=== PATIENT | female | born 1935 | race Caucasian/White ===

== ENCOUNTER 2017-11-13 07:02 | Day surgery (SDC) | payer MEDICARE ==
[~2017-11-13] VITALS: Ht 162.6 cm; Wt 82.0 kg
[~2017-11-13 07:02] MED LIST: ALBU90OI INH; ASPIRIN CAFFEINE PO; ATOR10 PO; AZIT250 PO; AZIT500 PO; Amiodarone HCl200 MG PO; BAYER BACK & B1 EACH PO; BENZ100A PO; CAPS28.3TC TOP; CETI5; CETI5 PO; Crestor20 MG PO; DIAZ10 PO; DICL75ER PO; DICMIS75EC; DICMIS75EC PO; ELIQUIS2.5 MG PO; FURO20 PO; FURO40; FURO40 PO; GABA300 PO; GABA300T24 PO; GLYB1.5 PO; GLYB2.5 PO; GLYB5 PO; Glyburide5 MG PO; HYDR1TAB94 PO; INDO50 PO; Klor-Con 1010 MEQ PO; Lanoxin125 MCG PO; Lisinopril2.5 MG PO; MECL25 PO; METF500; METF500 PO; METO10; METO25ER PO; Metoclopramide10 MG PO; Mucinex600 MG PO; Norco 5-325 Ta1 EACH PO; OMEP20ER PO; ORLI120; OXAYDO7.5 MG PO; OXYACE5T PO; OXYACE7.5T; OXYACE7.5T PO; OXYC10TA19 PO; Ondansetron Odt8 MG PO; POTA10T; POTA10T PO; POTCHL10ER PO; PROACE100; PROM25 PO; Percocet 5-3251 EACH PO; Percocet 7.5-31 EACH PO; Prednisone20 MG PO; Prozac40 MG PO; Qualaquin324 MG PO; RANI150 PO; ROSU10TA; ROSU10TA PO; Ranitidine HCl300 M1 PO; SERT100; TRIHYD253A PO; Valium10 MG PO; Zofran Odt4 MG PO
[2017-11-13] MEDS ORDERED: ROSU10TA PO (08:14)
[2017-11-13] MEDS ORDERED: GLIP2.5ER PO (08:16)
[2017-11-13] MEDS ORDERED: Omeprazole20 M1 PO (08:17)
[2017-11-13] MEDS ORDERED: ALBU90OI61 NEB (08:21)
[2017-11-13] MEDS ORDERED: NEBI5 PO (08:22)
== END 2017-11-13 22:53 | disposition home or self-care (01) ==
LOC: MHTC 07:02
PROC: 065Q3ZZ Destruction of Left Saphenous Vein, Percutaneous Approach (ICD-10-PCS; principal; 2017-11-13)
DX: I87.2 Venous insufficiency (chronic) (peripheral) (principal); I47.1 Supraventricular tachycardia; I48.0 Paroxysmal atrial fibrillation; I50.30 Unspecified diastolic (congestive) heart failure; E11.9 Type 2 diabetes mellitus without complications; G47.33 Obstructive sleep apnea (adult) (pediatric); M19.90 Unspecified osteoarthritis, unspecified site; J44.9 Chronic obstructive pulmonary disease, unspecified; E78.5 Hyperlipidemia, unspecified; G47.30 Sleep apnea, unspecified; Z88.0 Allergy status to penicillin; Z88.5 Allergy status to narcotic agent; Z88.8 Allergy status to other drugs, medicaments and biological substances; Z79.899 Other long term (current) drug therapy; Z79.01 Long term (current) use of anticoagulants; Z96.652 Presence of left artificial knee joint; Z79.84 Long term (current) use of oral hypoglycemic drugs; Z87.891 Personal history of nicotine dependence
CPT/HCPCS: 36475; 82947; 99152; C1769; C1888; C1894; J1644; J2250; J3010; J7030; J7040

== ENCOUNTER 2018-01-08 08:02 | Day surgery (SDC) | payer MEDICARE ==
[~2018-01-08] VITALS: Ht 160 cm; Wt 87.2 kg
[~2018-01-08 08:02] MED LIST changes: +ALBU90OI61 NEB; +GLIP2.5ER PO; +NEBI5 PO; +Omeprazole20 M1 PO
== END 2018-01-08 22:41 | disposition home or self-care (01) ==
LOC: MHTC 08:02
PROC: 065P3ZZ Destruction of Right Saphenous Vein, Percutaneous Approach (ICD-10-PCS; principal; 2018-01-08)
PROC: 3E033TZ Introduction of Destructive Agent into Peripheral Vein, Percutaneous Approach (ICD-10-PCS; principal; 2018-01-08)
DX: E11.51 Type 2 diabetes mellitus with diabetic peripheral angiopathy without gangrene (principal); I87.2 Venous insufficiency (chronic) (peripheral); I83.811 Varicose veins of right lower extremity with pain; I83.891 Varicose veins of right lower extremity with other complications; E78.5 Hyperlipidemia, unspecified; G47.30 Sleep apnea, unspecified; Z87.891 Personal history of nicotine dependence; I48.0 Paroxysmal atrial fibrillation
CPT/HCPCS: 36465; 36470; 36475; 82947; 99152; C1888; C1894; J1644; J2250; J3010; J7030; J7040

== ENCOUNTER 2018-12-10 08:33 | Day surgery (SDC) | payer MEDICARE ==
[~2018-12-10] VITALS: Ht 160 cm; Wt 90.9 kg
[~2018-12-10 08:33] MED LIST changes: +CLARITIN10 MG PO; +ELIQUIS5 MG PO; +FLONASE ALLERG9.9 ML INH; -FURO40; -GLIP2.5ER PO; +GLIP5ER PO; -OXYACE7.5T; -POTA10T
[2018-12-10] MEDS ORDERED: DIPH50 PO (09:22)
[2018-12-18] MEDS ORDERED: CRAMP PO (08:57)
[2018-12-18] MEDS ORDERED: CLARITIN10 MG PO (08:57)
== END 2018-12-10 22:48 | disposition home or self-care (01) ==
LOC: MHTC 08:33
PROC: 3E033TZ Introduction of Destructive Agent into Peripheral Vein, Percutaneous Approach (ICD-10-PCS; principal; 2018-12-10)
PROC: 065P3ZZ Destruction of Right Saphenous Vein, Percutaneous Approach (ICD-10-PCS; principal; 2018-12-10)
PROC: B54BZZA Ultrasonography of Right Lower Extremity Veins, Guidance (ICD-10-PCS; principal; 2018-12-10)
DX: I87.2 Venous insufficiency (chronic) (peripheral) (principal); E11.9 Type 2 diabetes mellitus without complications; I48.0 Paroxysmal atrial fibrillation; E78.5 Hyperlipidemia, unspecified; G47.30 Sleep apnea, unspecified; E78.00 Pure hypercholesterolemia, unspecified; R13.10 Dysphagia, unspecified; K22.4 Dyskinesia of esophagus; K22.5 Diverticulum of esophagus, acquired; R22.40 Localized swelling, mass and lump, unspecified lower limb; M19.90 Unspecified osteoarthritis, unspecified site; Z96.653 Presence of artificial knee joint, bilateral; Z98.1 Arthrodesis status; Z79.899 Other long term (current) drug therapy; Z79.01 Long term (current) use of anticoagulants; Z79.84 Long term (current) use of oral hypoglycemic drugs; Z88.8 Allergy status to other drugs, medicaments and biological substances; Z88.0 Allergy status to penicillin; Z88.5 Allergy status to narcotic agent
CPT/HCPCS: 36470; 36475; C1888; C1894; J1644; J2250; J2310; J3010; J7030; J7040

== ENCOUNTER 2018-12-18 10:16 | Day surgery (SDC) | payer MEDICARE ==
[~2018-12-18] VITALS: Ht 162.6 cm; Wt 90.0 kg
[~2018-12-18 10:16] MED LIST changes: +CRAMP PO; +DIPH50 PO
--- NOTE | 2018-12-18 13:26 | NUR ---
PT IN RECOVERY - AT BEDSIDE. PT RIGHT GROIN SITE WNL. SOFT, NON TENDER. NO BLEEDING OR SWELLING NOTED. PT HAS NO C/O AT THIS TIME. LAYING FLAT PER MD ORDERS. LEGS PWD BILATERALLY.
--- NOTE | 2018-12-18 14:48 | NUR ---
PT RESTING ON STRETCHER AT THIS TIME. ATE LUNCH WITH ASSISTANCE OF . NO C/O PAIN OR DISCOMFORT. NO BLEEDING OR SWELLING NOTED. PT TOLERATING LAYING FLAT WITHOUT DIFFICULTY.
--- NOTE | 2018-12-18 16:47 | NUR ---
PT DISCHARGED HOME VIA W/C AT 1630. HAD AMBULATED AROUND DEPARTMENT, WENT TO BATHROOM, AND DRESSED SELF PRIOR TO D/C. NO BLEEDING OR SWELLING NOTED TO GROIN AREA WITH FREQUENT CHECKS. LEG REMAINED PWD. PT DENIED PAIN OR DISCOMFORT. REVIEWED DISCHARGE INSTRUCTIONS WITH PATIENT AND PRIOR TO LEAVING - BOTH VERBALIZED UNDERSTANDING OF ALL INSTRUCTIONS GIVEN. IV D/C TIP INTACT. DRIVE PATIENT HOME.
== END 2018-12-18 16:30 | disposition home or self-care (01) ==
LOC: MHTC 10:16
PROC: 047S3ZZ Dilation of Left Posterior Tibial Artery, Percutaneous Approach (ICD-10-PCS; principal; 2018-12-18)
PROC: B41F1ZZ Fluoroscopy of Right Lower Extremity Arteries using Low Osmolar Contrast (ICD-10-PCS; principal; 2018-12-18)
DX: I70.202 Unspecified atherosclerosis of native arteries of extremities, left leg (principal); I35.0 Nonrheumatic aortic (valve) stenosis; Z95.828 Presence of other vascular implants and grafts
CPT/HCPCS: 36247; 37228; 75625; 75716; 75774; 99152; 99153; C1725; C1760; C1769; C1887; C1894; J1644; J2250; J3010; J7030; Q9967

== ENCOUNTER → 2021-04-27 | Outpatient (CLI) | payer MEDICARE ==
[~2021-04-27] MED LIST changes: +ASPI325; +OMEP20ER; +PREG50
[2021-04-27 13:29] LABS: Microalbumin, Urine Quant. 19.3 mg/L (0.000-20.000); Protein, Urine Quantitative 12.5 mg/dL (0.0-11.9)
== END | disposition home or self-care (01) ==
LOC: LAB 09:20 → LAB SHORT 09:20
PROVIDERS: Internal Medicine Nephrology
DX: N18.30 Chronic kidney disease, stage 3 unspecified (principal); D63.1 Anemia in chronic kidney disease; N25.81 Secondary hyperparathyroidism of renal origin; E55.9 Vitamin D deficiency, unspecified; E78.00 Pure hypercholesterolemia, unspecified; D50.9 Iron deficiency anemia, unspecified; D51.8 Other vitamin B12 deficiency anemias; D52.8 Other folate deficiency anemias; R76.9 Abnormal immunological finding in serum, unspecified; R94.5 Abnormal results of liver function studies; R94.6 Abnormal results of thyroid function studies
CPT/HCPCS: 81050; 82043; 84156; 84300

== ENCOUNTER 2022-02-08 08:56 | Day surgery (SDC) | payer MEDICARE ==
[~2022-02-08] VITALS: Ht 157.5 cm; Wt 88.5 kg
[~2022-02-08 08:56] MED LIST changes: +PREG50 PO
[2022-02-08] MEDS ORDERED: NEBI10 (10:07)
--- NOTE | 2022-02-08 10:12 | NUR ---
02/08/22 1012 EMILIE ACUÑA TETRACAINE DROP AT 9:54, PLEDGETTE PLACED AT 10:12, PT TOLERATED WELL
== END 2022-02-08 11:59 | disposition home or self-care (01) ==
LOC: ORSCSDS 08:56
PROVIDERS: Ophthalmology
PROC: 08RK3JZ Replacement of Left Lens with Synthetic Substitute, Percutaneous Approach (ICD-10-PCS; principal; 2022-02-08 10:30)
DX: H25.13 Age-related nuclear cataract, bilateral (principal); J44.9 Chronic obstructive pulmonary disease, unspecified; G47.33 Obstructive sleep apnea (adult) (pediatric); K21.9 Gastro-esophageal reflux disease without esophagitis; I48.91 Unspecified atrial fibrillation; Z79.01 Long term (current) use of anticoagulants; I12.9 Hypertensive chronic kidney disease with stage 1 through stage 4 chronic kidney disease, or unspecified chronic kidney disease; E11.22 Type 2 diabetes mellitus with diabetic chronic kidney disease; N18.9 Chronic kidney disease, unspecified; Z79.84 Long term (current) use of oral hypoglycemic drugs; Z79.899 Other long term (current) drug therapy
CPT/HCPCS: 82947; J2001; J2250; J3010; J3301; J7040; V2632

== ENCOUNTER 2022-03-08 08:41 | Day surgery (SDC) | payer MEDICARE ==
[~2022-03-08] VITALS: Ht 160 cm; Wt 85.3 kg
[~2022-03-08 08:41] MED LIST changes: +CYCL10 PO; +GLIP2.5ER PO; +GLYBURIDE5 M1 PO; +NEBI10; -OMEP20ER; +PREG75 PO; +Prednisone10 MG PO
--- NOTE | 2022-03-08 13:20 | NUR ---
03/08/22 1320 Elsie Sesay ADVISED PT TO TAKE OTC MEDICATION FOR PAIN. IF THE PAIN IS NOT RESOLVED WITH OTC MEDICATION THAN SHE NEEDS TO NOTIFY DR DICKSON OFFICE THIS COULD BE A SIGN OF COMPLICATIONS.
== END 2022-03-08 11:40 | disposition home or self-care (01) ==
LOC: ORSCSDS 08:41
PROVIDERS: Ophthalmology
PROC: 08RJ3JZ Replacement of Right Lens with Synthetic Substitute, Percutaneous Approach (ICD-10-PCS; principal; 2022-03-08 10:30)
DX: H25.11 Age-related nuclear cataract, right eye (principal); I48.91 Unspecified atrial fibrillation; I10 Essential (primary) hypertension; K21.9 Gastro-esophageal reflux disease without esophagitis; E11.9 Type 2 diabetes mellitus without complications; E66.01 Morbid (severe) obesity due to excess calories; Z68.33 Body mass index [BMI] 33.0-33.9, adult; Z79.01 Long term (current) use of anticoagulants; Z79.899 Other long term (current) drug therapy
CPT/HCPCS: 82947; A9270; J2001; J2250; J3010; J3301; J7040; V2632

== ENCOUNTER → 2022-12-18 | Outpatient (CLI) | payer MEDICARE ==
[2022-12-18 16:25] LABS: U Benzodiazapine Screen DETECTED
[2022-12-18 16:26] LABS: U Amphetamine Screen Not Detected; U Barbituate Screen Not Detected; U Buprenorphine Screen Not Detected; U Cannabinoids Screen Not Detected; U Cocaine Screen Not Detected; U Methadone Screen Not Detected; U Methamphetamine Screen Not Detected; U Opiates Screen Not Detected; U Oxycodone Screen Not Detected; U Phencyclidine Screen Not Detected; U Propoxyphene Screen Not Detected
== END ==
LOC: LAB SHORT 14:13 → LAB 14:13
PROVIDERS: Physician Assistant
DX: Z51.81 Encounter for therapeutic drug level monitoring (principal); Z79.899 Other long term (current) drug therapy

== ENCOUNTER 2023-02-01 21:24 | Observation (INO) | payer MEDICARE ==
[~2023-02-01] VITALS: Ht 160 cm; Wt 72.6 kg
[~2023-02-01 21:24] MED LIST changes: -NEBI10; +NEBI10 PO
[2023-02-01] MEDS ORDERED: GLIP5ER PO (21:42)
[2023-02-01] MEDS ORDERED: CYCL10 PO (21:43)
[2023-02-01] MEDS ORDERED: Prednisone10 MG PO (21:43)
[2023-02-01 22:17] LABS: BASOPHILS ABSOLUTE AUTO 0.02 K/mm3 (0.00-0.23); BASOPHILS PERCENT AUTO 0 % (0-2); EOSINOPHILS ABSOLUTE AUTO 0.27 K/mm3 (0.00-0.68); EOSINOPHILS PERCENT AUTO 3 % (0-6); Hematocrit 37.6 % (33.0-51.0); Hemoglobin 12.5 g/dL (11.5-16.0); IMMATURE GRAN ABSOLUTE AUTO 0.06 K/mm3 (0.00-0.10); IMMATURE GRAN PERCENT AUTO 1 % (0-1); LYMPHOCYTES ABSOLUTE AUTO 2.01 K/mm3 (0.84-5.20); LYMPHOCYTES PERCENT AUTO 21 % (21-46); MONOCYTES ABSOLUTE AUTO 0.73 K/mm3 (0.16-1.47); MONOCYTES PERCENT AUTO 8 % (4-13); Mean Corpuscular HGB 29.8 pg (26.0-34.0); Mean Corpuscular HGB Conc 33.2 g/dL (31.5-36.5); Mean Corpuscular Volume 90 fL (80-100); Mean Platelet Volume 11.3 fL (9.1-12.4); NEUTROPHILS ABSOLUTE AUTO 6.33 K/mm3 (1.96-9.15); NEUTROPHILS PERCENT AUTO 67 % (41-73); Platelet Count 141 K/mm3 (150-400); RDW Coefficient Variation 13.4 % (11.7-14.2); RDW Standard Deviation 43.9 fL (35.1-46.3); Red Blood Cell Count 4.19 M/mm3 (3.80-5.20); White Blood Cell Count 9.42 K/mm3 (4.00-11.30)
[2023-02-01 22:33] LABS: International Normalized Ratio 0.99; Prothrombin Time Results 10.4 Sec (9.7-11.5)
[2023-02-01 22:37] LABS: Albumin, Blood 3.1 g/dL (3.4-5.0); Albumin/Globulin Ratio 0.9 (0.8-1.8); Bilirubin, Total 0.3 mg/dL (0.1-1.0); Calcium, Blood 8.4 mg/dL (8.5-10.1); Globulin, Blood 3.4 g/dL (2.2-4.0); Potassium, Blood 3.9 mmol/L (3.5-5.5); Total Protein, Blood 6.5 g/dL (6.4-8.2)
[2023-02-02 00:15] LABS: Thyroid Stimulating Hormone 1.42 uIU/mL (0.360-4.800)
[2023-02-02 00:25] LABS: Free Thyroxine 1.07 ng/dL (0.70-1.60)
[2023-02-02 01:43] VITALS: BP 138/63
--- NOTE | 2023-02-02 04:47 | NUR ---
SHIFT SUMMERY, PT CAME TO THE FLOOR [facility] AND DWAS ABLE TO AMBULATE TO BEDWITH SBA.PT ALERT AND OREINTED, PT STEADY ON FEET. 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 PT SKIN INTACT NO C/O PAIN OR ANY CHEST PAIN OR ANY SOB.pT TRYING TO REST AT THIS TIME. PT WAS ABLE TO VOID BEFORE GOING TO SLEEP PT VOIDING WITH OUT ANY DIFFICULTY. 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
[2023-02-02 05:54] LABS: BASOPHILS ABSOLUTE AUTO 0.03 K/mm3 (0.00-0.23); BASOPHILS PERCENT AUTO 0 % (0-2); EOSINOPHILS ABSOLUTE AUTO 0.15 K/mm3 (0.00-0.68); EOSINOPHILS PERCENT AUTO 2 % (0-6); Hematocrit 39.7 % (33.0-51.0); Hemoglobin 13.4 g/dL (11.5-16.0); IMMATURE GRAN ABSOLUTE AUTO 0.05 K/mm3 (0.00-0.10); IMMATURE GRAN PERCENT AUTO 1 % (0-1); LYMPHOCYTES ABSOLUTE AUTO 1.88 K/mm3 (0.84-5.20); LYMPHOCYTES PERCENT AUTO 21 % (21-46); MONOCYTES ABSOLUTE AUTO 0.47 K/mm3 (0.16-1.47); MONOCYTES PERCENT AUTO 5 % (4-13); Mean Corpuscular HGB Conc 33.8 g/dL (31.5-36.5); Mean Corpuscular Volume 89 fL (80-100); NEUTROPHILS ABSOLUTE AUTO 6.61 K/mm3 (1.96-9.15); NEUTROPHILS PERCENT AUTO 72 % (41-73); Platelet Count 164 K/mm3 (150-400); RDW Coefficient Variation 13.2 % (11.7-14.2); RDW Standard Deviation 43.2 fL (35.1-46.3); Red Blood Cell Count 4.46 M/mm3 (3.80-5.20); White Blood Cell Count 9.19 K/mm3 (4.00-11.30)
[2023-02-02 06:21] LABS: CPK Creatine Kinase 62 U/L (26-193)
[2023-02-02 06:57] LABS: Albumin, Blood 3.1 g/dL (3.4-5.0); Albumin/Globulin Ratio 0.9 (0.8-1.8); Bilirubin, Total 0.5 mg/dL (0.1-1.0); Bun/Creatinine Ratio 26.1 (12.0-20.0); Calcium, Blood 8.7 mg/dL (8.5-10.1); Creatinine, Blood 0.92 mg/dL (0.40-1.00); Globulin, Blood 3.3 g/dL (2.2-4.0); Potassium, Blood 4.1 mmol/L (3.5-5.5); Total Protein, Blood 6.4 g/dL (6.4-8.2)
[2023-02-02 08:11] VITALS: BP 141/68
[2023-02-02 15:34] VITALS: BP 132/67
--- NOTE | 2023-02-02 18:24 | NUR ---
DC HOME/LATE ENTRY 175: WRITTEN & VERBAL DC INSTRUCTIONS GIVEN TO PT WITH PRESENT, BOTH VERBALIZED GOOD UNDERSTANDING. ALL CONCERNS & QUESTIONS ADDRESSED. NO NEW MEDS. PIV DC'D WITH CATH TIP INTACT, NO REDNESS OR SWELLING NOTED. PT INFORMED THAT A ZIO PATCH HAS BEEN ORDERED AND ORDERS WERE FAXED TO [facility]. PT TO HAVE PATCH PLACED AN OUT PT ON SUN. TELE DC'D. LOOM CHECKER NOTIFIED. PT TO PV VIA W/C WITH ALL PERSONAL BELONGINGS.
== END 2023-02-02 18:01 | disposition home or self-care (01) ==
LOC: ER 21:24 → MEDS 21:25
PROVIDERS: Student in an Organized Health Care Education/Training Program; ADMIT Internal Medicine
DX: R94.31 Abnormal electrocardiogram [ECG] [EKG] (principal); R00.2 Palpitations; E11.40 Type 2 diabetes mellitus with diabetic neuropathy, unspecified; I10 Essential (primary) hypertension; G47.33 Obstructive sleep apnea (adult) (pediatric); K21.9 Gastro-esophageal reflux disease without esophagitis; R06.02 Shortness of breath; I48.91 Unspecified atrial fibrillation; E78.5 Hyperlipidemia, unspecified; Z88.6 Allergy status to analgesic agent; Z88.0 Allergy status to penicillin; Z88.2 Allergy status to sulfonamides; Z88.8 Allergy status to other drugs, medicaments and biological substances; Z87.891 Personal history of nicotine dependence; Z79.01 Long term (current) use of anticoagulants
CPT/HCPCS: 36415; 71045; 71046; 80053; 82550; 82947; 83880; 84439; 84443; 84484; 85025; 85379; 85610; 93005; 93010; 93306; 99285-25; A9270; G0378; J7030; J7512

== ENCOUNTER 2023-02-15 09:11 | Emergency (ER) | payer MEDICARE ==
[~2023-02-15] VITALS: Ht 160 cm; Wt 74.8 kg
[2023-02-15 11:20] VITALS: BP 126/57
== END 2023-02-15 11:34 | disposition home or self-care (01) ==
LOC: ER 09:11
DX: R00.2 Palpitations (principal); E11.9 Type 2 diabetes mellitus without complications; E78.5 Hyperlipidemia, unspecified; Z88.5 Allergy status to narcotic agent; Z88.0 Allergy status to penicillin; Z88.2 Allergy status to sulfonamides; Z88.8 Allergy status to other drugs, medicaments and biological substances; Z79.01 Long term (current) use of anticoagulants; Z79.52 Long term (current) use of systemic steroids; Z79.84 Long term (current) use of oral hypoglycemic drugs; Z79.899 Other long term (current) drug therapy; Z87.891 Personal history of nicotine dependence
CPT/HCPCS: 36415; 93005; 93010; 99284-25

== ENCOUNTER → 2023-06-28 | Outpatient (CLI) | payer MEDICARE ==
[2023-06-28 18:23] LABS: BASOPHILS ABSOLUTE AUTO 0.04 K/mm3 (0.00-0.23); BASOPHILS PERCENT AUTO 0 % (0-2); EOSINOPHILS ABSOLUTE AUTO 0.05 K/mm3 (0.00-0.68); EOSINOPHILS PERCENT AUTO 1 % (0-6); Hemoglobin 14.8 g/dL (11.5-16.0); IMMATURE GRAN ABSOLUTE AUTO 0.06 K/mm3 (0.00-0.10); IMMATURE GRAN PERCENT AUTO 1 % (0-1); LYMPHOCYTES ABSOLUTE AUTO 2.15 K/mm3 (0.84-5.20); LYMPHOCYTES PERCENT AUTO 20 % (21-46); MONOCYTES ABSOLUTE AUTO 0.64 K/mm3 (0.16-1.47); MONOCYTES PERCENT AUTO 6 % (4-13); Mean Corpuscular HGB 29.5 pg (26.0-34.0); Mean Corpuscular HGB Conc 33.6 g/dL (31.5-36.5); Mean Corpuscular Volume 88 fL (80-100); Mean Platelet Volume 12.4 fL (9.1-12.4); NEUTROPHILS ABSOLUTE AUTO 7.92 K/mm3 (1.96-9.15); NEUTROPHILS PERCENT AUTO 73 % (41-73); Platelet Count 161 K/mm3 (150-400); RDW Coefficient Variation 12.9 % (11.7-14.2); RDW Standard Deviation 41.1 fL (35.1-46.3); Red Blood Cell Count 5.01 M/mm3 (3.80-5.20); White Blood Cell Count 10.86 K/mm3 (4.00-11.30)
[2023-06-28 19:09] LABS: Albumin, Blood 4.6 g/dL (3.4-5.0); Albumin/Globulin Ratio 1.3 (0.8-1.8); Bilirubin, Total 0.7 mg/dL (0.1-1.0); Calcium, Blood 10.2 mg/dL (8.5-10.1); Creatinine, Blood 1.32 mg/dL (0.40-1.00); Globulin, Blood 3.5 g/dL (2.2-4.0); Potassium, Blood 4.8 mmol/L (3.5-5.5); Total Protein, Blood 8.1 g/dL (6.4-8.2)
== END | disposition home or self-care (01) ==
LOC: LAB SHORT 17:22 → LAB 17:22 → EDSTATUS 06-28 16:35 → LAB FUT 06-28 16:35
PROVIDERS: Nurse Practitioner Family
DX: R11.0 Nausea (principal)
CPT/HCPCS: 80053; 85025

== ENCOUNTER 2024-04-11 13:21 | Emergency (ER) | payer MEDICARE ==
[~2024-04-11] VITALS: Ht 160 cm; Wt 59.0 kg
[2024-04-11] MEDS ORDERED: OxyCODONE HCL 5 MG TAB PO ONE (14:35)
[2024-04-11] MEDS ORDERED: Ketorolac Tromethamine 15mg Vial IM ONE (14:35)
[2024-04-11] MEDS ORDERED: Polyethylene Glycol 3350 17 gm PO ONE (14:35)
[2024-04-11 15:22] LABS: Source, Urine Clean Catch
[2024-04-11 15:28] LABS: Appearance, Urine Clear (Clear); Bilirubin, Urine Neg (Neg); Blood, Urine Neg (Neg); Color, Urine Yellow (P-Yellow); Glucose Qualitative, Urine Neg (Neg); Ketones, Urine 2+ (Neg); Leukocyte Esterase, Urine Neg (Neg); Nitrite, Urine Neg (Neg); Protein, Urine 1+ (Neg); Urobilinogen, Urine NORM (Normal)
[2024-04-11 16:30] VITALS: BP 138/61
[2024-04-11] MEDS ORDERED: Percocet 5-3251 EACH PO (16:47)
== END 2024-04-11 17:00 | disposition home or self-care (01) ==
LOC: ER 13:21
PROVIDERS: Emergency Medicine
DX: M54.41 Lumbago with sciatica, right side (principal); Z88.5 Allergy status to narcotic agent; Z88.0 Allergy status to penicillin; Z88.2 Allergy status to sulfonamides; Z88.8 Allergy status to other drugs, medicaments and biological substances; Z79.899 Other long term (current) drug therapy; Z79.52 Long term (current) use of systemic steroids; E78.5 Hyperlipidemia, unspecified; E11.40 Type 2 diabetes mellitus with diabetic neuropathy, unspecified; Z87.891 Personal history of nicotine dependence
CPT/HCPCS: 99284; A9270

== ENCOUNTER 2024-04-15 14:45 | Emergency (ER) | payer MEDICARE ==
[~2024-04-15] VITALS: Ht 162.6 cm; Wt 68.0 kg
[2024-04-15] MEDS ORDERED: Cyclobenzaprine HCl 10 MG Tab PO ONE (15:00)
[2024-04-15] MEDS ORDERED: Acetaminophen 325 MG TABLET PO ONE (15:00)
[2024-04-15] MEDS ORDERED: OxyCODONE 5 mg/Acetamin 325 mg TABLET PO ONE (15:00)
[2024-04-15] MEDS ORDERED: Lidocaine 4% 1 Patch TOP ONE (15:00)
[2024-04-15] MEDS ORDERED: HYDROmorphone HCl 2 MG Tab PO ONE ×2 (16:15→18:00)
[2024-04-15] MEDS ORDERED: NARCAN4 M1 (17:58)
[2024-04-15] MEDS ORDERED: Voltaren100 GM TOP (17:58)
[2024-04-15] MEDS ORDERED: HYDMOR2 PO (17:58)
[2024-04-15] MEDS ORDERED: CYCL10 PO (17:58)
[2024-04-15] MEDS ORDERED: LIDO700A20 TOP (17:58)
[2024-04-15 18:18] VITALS: BP 146/53
== END 2024-04-15 18:36 | disposition home or self-care (01) ==
LOC: ER 14:45
DX: M54.31 Sciatica, right side (principal); E11.40 Type 2 diabetes mellitus with diabetic neuropathy, unspecified; E78.5 Hyperlipidemia, unspecified; Z87.891 Personal history of nicotine dependence; Z88.0 Allergy status to penicillin; Z88.2 Allergy status to sulfonamides; Z88.5 Allergy status to narcotic agent; Z88.8 Allergy status to other drugs, medicaments and biological substances; Z79.84 Long term (current) use of oral hypoglycemic drugs; Z79.01 Long term (current) use of anticoagulants; Z79.899 Other long term (current) drug therapy
CPT/HCPCS: 72131; 72192; 99284-25; A9270

== ENCOUNTER 2024-04-17 18:08 | Emergency (ER) | payer MEDICARE ==
[~2024-04-17] VITALS: Ht 160 cm; Wt 59.0 kg
[~2024-04-17 18:08] MED LIST changes: +HYDMOR2 PO; +LIDO700A20 TOP; +NARCAN4 M1; +Voltaren100 GM TOP
[2024-04-17 18:35] LABS: BASOPHILS ABSOLUTE AUTO 0.03 K/mm3 (0.00-0.23); BASOPHILS PERCENT AUTO 0 % (0-2); EOSINOPHILS ABSOLUTE AUTO 0.08 K/mm3 (0.00-0.68); EOSINOPHILS PERCENT AUTO 1 % (0-6); Hematocrit 42.4 % (33.0-51.0); Hemoglobin 14.1 g/dL (11.5-16.0); IMMATURE GRAN ABSOLUTE AUTO 0.02 K/mm3 (0.00-0.10); IMMATURE GRAN PERCENT AUTO 0 % (0-1); LYMPHOCYTES ABSOLUTE AUTO 1.65 K/mm3 (0.84-5.20); LYMPHOCYTES PERCENT AUTO 20 % (21-46); MONOCYTES ABSOLUTE AUTO 0.56 K/mm3 (0.16-1.47); MONOCYTES PERCENT AUTO 7 % (4-13); Mean Corpuscular HGB 30.3 pg (26.0-34.0); Mean Corpuscular HGB Conc 33.3 g/dL (31.5-36.5); Mean Corpuscular Volume 91 fL (80-100); Mean Platelet Volume 10.8 fL (9.1-12.4); NEUTROPHILS ABSOLUTE AUTO 5.94 K/mm3 (1.96-9.15); NEUTROPHILS PERCENT AUTO 72 % (41-73); Platelet Count 174 K/mm3 (150-400); RDW Coefficient Variation 13.1 % (11.7-14.2); RDW Standard Deviation 43.8 fL (35.1-46.3); Red Blood Cell Count 4.66 M/mm3 (3.80-5.20); White Blood Cell Count 8.28 K/mm3 (4.00-11.30)
[2024-04-17 18:48] LABS: Albumin, Blood 4.1 g/dL (3.4-5.0); Albumin/Globulin Ratio 1.1 (0.8-1.8); Bun/Creatinine Ratio 28.5 (12.0-20.0); Calcium, Blood 9.4 mg/dL (8.5-10.1); Creatinine, Blood 1.3 mg/dL (0.40-1.00); Globulin, Blood 3.6 g/dL (2.2-4.0); Potassium, Blood 3.7 mmol/L (3.5-5.5); Total Protein, Blood 7.7 g/dL (6.4-8.2)
[2024-04-17 20:21] VITALS: BP 118/52
== END 2024-04-17 21:00 | disposition home or self-care (01) ==
LOC: ER 18:08
PROVIDERS: Emergency Medicine
DX: S51.012A Laceration without foreign body of left elbow, initial encounter (principal); R55 Syncope and collapse; E11.40 Type 2 diabetes mellitus with diabetic neuropathy, unspecified; E78.5 Hyperlipidemia, unspecified; W18.30XA Fall on same level, unspecified, initial encounter; Z87.891 Personal history of nicotine dependence; Z79.51 Long term (current) use of inhaled steroids; Z79.899 Other long term (current) drug therapy; Z79.52 Long term (current) use of systemic steroids; Z88.5 Allergy status to narcotic agent; Z88.0 Allergy status to penicillin; Z88.2 Allergy status to sulfonamides; Z88.8 Allergy status to other drugs, medicaments and biological substances
CPT/HCPCS: 12001; 71046; 73030; 73070; 80053; 84484; 85025; 93005; 93010; 99284-25

== ENCOUNTER 2024-04-24 10:26 | Emergency (ER) | payer MEDICARE ==
[~2024-04-24] VITALS: Ht 162.6 cm; Wt 68.0 kg
[2024-04-24 11:16] LABS: BASOPHILS ABSOLUTE AUTO 0.02 K/mm3 (0.00-0.23); BASOPHILS PERCENT AUTO 0 % (0-2); EOSINOPHILS ABSOLUTE AUTO 0.14 K/mm3 (0.00-0.68); EOSINOPHILS PERCENT AUTO 2 % (0-6); Hemoglobin 14.4 g/dL (11.5-16.0); IMMATURE GRAN ABSOLUTE AUTO 0.02 K/mm3 (0.00-0.10); IMMATURE GRAN PERCENT AUTO 0 % (0-1); LYMPHOCYTES ABSOLUTE AUTO 2.32 K/mm3 (0.84-5.20); LYMPHOCYTES PERCENT AUTO 28 % (21-46); MONOCYTES ABSOLUTE AUTO 0.73 K/mm3 (0.16-1.47); MONOCYTES PERCENT AUTO 9 % (4-13); Mean Corpuscular HGB 30.5 pg (26.0-34.0); Mean Corpuscular HGB Conc 35.1 g/dL (31.5-36.5); Mean Corpuscular Volume 87 fL (80-100); Mean Platelet Volume 10.9 fL (9.1-12.4); NEUTROPHILS ABSOLUTE AUTO 4.94 K/mm3 (1.96-9.15); NEUTROPHILS PERCENT AUTO 61 % (41-73); Platelet Count 209 K/mm3 (150-400); RDW Coefficient Variation 12.4 % (11.7-14.2); RDW Standard Deviation 39.8 fL (35.1-46.3); Red Blood Cell Count 4.72 M/mm3 (3.80-5.20); White Blood Cell Count 8.17 K/mm3 (4.00-11.30)
[2024-04-24 11:41] LABS: Albumin, Blood 4.1 g/dL (3.4-5.0); Albumin/Globulin Ratio 1.2 (0.8-1.8); Bilirubin, Total 0.9 mg/dL (0.1-1.0); Bun/Creatinine Ratio 29.7 (12.0-20.0); Calcium, Blood 9.7 mg/dL (8.5-10.1); Creatinine, Blood 1.18 mg/dL (0.40-1.00); Globulin, Blood 3.5 g/dL (2.2-4.0); Total Protein, Blood 7.6 g/dL (6.4-8.2)
[2024-04-24] MEDS ORDERED: Potassium Chlo20 ME1 PO (11:47)
[2024-04-24] MEDS ORDERED: ZOLOFT50 MG PO (11:47)
[2024-04-24 12:11] LABS: Source, Urine Clean Catch
[2024-04-24 12:15] LABS: Appearance, Urine Clear (Clear); Bilirubin, Urine Neg (Neg); Blood, Urine Neg (Neg); Color, Urine Yellow (P-Yellow); Glucose Qualitative, Urine Neg (Neg); Ketones, Urine Neg (Neg); Leukocyte Esterase, Urine 1+ (Neg); Nitrite, Urine Neg (Neg); Protein, Urine Neg (Neg); Specific Gravity, Urine 1.015 (1.003-1.022); Urobilinogen, Urine NORM (Normal)
[2024-04-24 12:30] LABS: Bacteria Mod /hpf; Red Blood Cells, Urine 0-2 /hpf (0-2); Squamous Epithelial Cells Few /hpf (Few); White Blood Cells, Urine 0-2 /hpf (0-5)
[2024-04-24 13:00] VITALS: BP 129/56
[2024-04-24] MEDS ORDERED: Cephalexin Monohydrate 500 MG Cap PO ONE (13:00)
[2024-04-24] MEDS ORDERED: CEPH500 PO (13:02)
== END 2024-04-24 13:25 | disposition home or self-care (01) ==
LOC: ER 10:26
PROVIDERS: Emergency Medicine; Physician Assistant
DX: R41.82 Altered mental status, unspecified (principal); R44.3 Hallucinations, unspecified; N39.0 Urinary tract infection, site not specified; E11.9 Type 2 diabetes mellitus without complications; E78.5 Hyperlipidemia, unspecified; I48.91 Unspecified atrial fibrillation; Z87.891 Personal history of nicotine dependence; Z88.0 Allergy status to penicillin; Z88.2 Allergy status to sulfonamides; Z88.8 Allergy status to other drugs, medicaments and biological substances; Z79.899 Other long term (current) drug therapy; Z79.51 Long term (current) use of inhaled steroids
CPT/HCPCS: 80053; 81001; 85025; 87077; 87086; 87186; 99284; A9270

== ENCOUNTER 2024-05-03 08:50 | Emergency (ER) | payer MEDICARE ==
[~2024-05-03] VITALS: Ht 162.6 cm; Wt 65.8 kg
[~2024-05-03 08:50] MED LIST changes: +CEPH500 PO; +Potassium Chlo20 ME1 PO; +ZOLOFT50 MG PO
[2024-05-03 09:36] LABS: BASOPHILS ABSOLUTE AUTO 0.04 K/mm3 (0.00-0.23); BASOPHILS PERCENT AUTO 1 % (0-2); EOSINOPHILS ABSOLUTE AUTO 0.13 K/mm3 (0.00-0.68); EOSINOPHILS PERCENT AUTO 2 % (0-6); Hematocrit 41.1 % (33.0-51.0); Hemoglobin 14.5 g/dL (11.5-16.0); IMMATURE GRAN ABSOLUTE AUTO 0.02 K/mm3 (0.00-0.10); IMMATURE GRAN PERCENT AUTO 0 % (0-1); LYMPHOCYTES ABSOLUTE AUTO 2.82 K/mm3 (0.84-5.20); LYMPHOCYTES PERCENT AUTO 33 % (21-46); MONOCYTES ABSOLUTE AUTO 0.68 K/mm3 (0.16-1.47); MONOCYTES PERCENT AUTO 8 % (4-13); Mean Corpuscular HGB 30.8 pg (26.0-34.0); Mean Corpuscular HGB Conc 35.3 g/dL (31.5-36.5); Mean Corpuscular Volume 87 fL (80-100); Mean Platelet Volume 10.6 fL (9.1-12.4); NEUTROPHILS ABSOLUTE AUTO 4.82 K/mm3 (1.96-9.15); NEUTROPHILS PERCENT AUTO 57 % (41-73); Platelet Count 177 K/mm3 (150-400); RDW Coefficient Variation 12.4 % (11.7-14.2); RDW Standard Deviation 39.7 fL (35.1-46.3); Red Blood Cell Count 4.71 M/mm3 (3.80-5.20); White Blood Cell Count 8.51 K/mm3 (4.00-11.30)
[2024-05-03 09:51] LABS: Source, Urine Clean Catch
[2024-05-03 09:55] LABS: Appearance, Urine Clear (Clear); Bilirubin, Urine Neg (Neg); Blood, Urine Neg (Neg); Glucose Qualitative, Urine Neg (Neg); Ketones, Urine Neg (Neg); Leukocyte Esterase, Urine Neg (Neg); Nitrite, Urine Neg (Neg); Protein, Urine Neg (Neg); Urobilinogen, Urine NORM (Normal)
[2024-05-03 10:00] LABS: Color, Urine Pale Yellow (P-Yellow)
[2024-05-03 10:08] LABS: Albumin, Blood 4.1 g/dL (3.4-5.0); Albumin/Globulin Ratio 1.2 (0.8-1.8); Bilirubin, Total 0.8 mg/dL (0.1-1.0); Calcium, Blood 9.6 mg/dL (8.5-10.1); Creatinine, Blood 0.96 mg/dL (0.40-1.00); Globulin, Blood 3.4 g/dL (2.2-4.0); Magnesium, Blood 1.7 mg/dL (1.6-2.4); Potassium, Blood 3.9 mmol/L (3.5-5.5); Total Protein, Blood 7.5 g/dL (6.4-8.2)
[2024-05-03 11:30] VITALS: BP 143/74
== END 2024-05-03 12:45 | disposition home or self-care (01) ==
LOC: ER 08:50
PROVIDERS: Physician Assistant
DX: R41.0 Disorientation, unspecified (principal); E11.40 Type 2 diabetes mellitus with diabetic neuropathy, unspecified; E78.5 Hyperlipidemia, unspecified; Z79.899 Other long term (current) drug therapy; Z88.5 Allergy status to narcotic agent; Z88.0 Allergy status to penicillin; Z88.2 Allergy status to sulfonamides; Z88.8 Allergy status to other drugs, medicaments and biological substances
CPT/HCPCS: 70450; 72125; 80053; 81003; 83735; 85025; P9612

== ENCOUNTER → 2025-07-23 | Outpatient (CLI) | payer MEDICARE ==
[2025-07-23 15:20] LABS: BASOPHILS ABSOLUTE AUTO 0.03 K/mm3 (0.00-0.23); BASOPHILS PERCENT AUTO 0 % (0-2); EOSINOPHILS ABSOLUTE AUTO 0.07 K/mm3 (0.00-0.68); EOSINOPHILS PERCENT AUTO 1 % (0-6); Hematocrit 36.7 % (33.0-51.0); Hemoglobin 12.5 g/dL (11.5-16.0); IMMATURE GRAN ABSOLUTE AUTO 0.03 K/mm3 (0.00-0.10); IMMATURE GRAN PERCENT AUTO 0 % (0-1); LYMPHOCYTES ABSOLUTE AUTO 1.54 K/mm3 (0.84-5.20); LYMPHOCYTES PERCENT AUTO 18 % (21-46); MONOCYTES ABSOLUTE AUTO 0.46 K/mm3 (0.16-1.47); MONOCYTES PERCENT AUTO 5 % (4-13); Mean Corpuscular HGB Conc 34.1 g/dL (31.5-36.5); Mean Corpuscular Volume 92 fL (80-100); NEUTROPHILS ABSOLUTE AUTO 6.60 K/mm3 (1.96-9.15); NEUTROPHILS PERCENT AUTO 76 % (41-73); NRBC ABSOLUTE 0.00 K/mm3 (0.00-0.02); NRBC Auto 0.0 /100 WBC (0.0-0.2); Platelet Count 184 K/mm3 (150-400); RDW Coefficient Variation 13.0 % (11.7-14.2); RDW Standard Deviation 44.5 fL (35.1-46.3)
[2025-07-23 15:41] LABS: Alanine Aminotransfer (ALT/SGP 20.0 U/L (12-78); Albumin, Blood 4.2 g/dL (3.4-5.0); Albumin/Globulin Ratio 1.3 (0.8-1.8); Anion Gap 15.0 mmol/L (3-11); Aspartate Aminotrans (AST/SGOT 20.0 U/L (12-37); Bilirubin, Total 0.8 mg/dL (0.1-1.0); Blood Urea Nitrogen 20.0 mg/dL (8-24); CO2, Blood 28.0 mmol/L (21-32); Calcium, Blood 9.7 mg/dL (8.5-10.1); Chloride, Blood 106.0 mmol/L (98-108); Creatinine, Blood 1.19 mg/dL (0.40-1.00); Globulin, Blood 3.3 g/dL (2.2-4.0); Glucose, Blood 143.0 mg/dL (70-99); Potassium, Blood 4.7 mmol/L (3.5-5.5); Sodium, Blood 144.0 mmol/L (136-145); Total Protein, Blood 7.5 g/dL (6.4-8.2)
== END ==
LOC: LAB SHORT 15:12 → LAB 15:12
DX: R44.0 Auditory hallucinations (principal); R82.81 Pyuria; R45.0 Nervousness
CPT/HCPCS: 80053; 84443; 85025; 87086